=== PATIENT | male | born 1970 | race Caucasian/White ===

== ENCOUNTER → 2017-10-19 | Outpatient (CLI) | payer BC | END | disposition home or self-care (01) | LOC: PCVCIMAG 11:42 | DX: I10 Essential (primary) hypertension (principal); R10.9 Unspecified abdominal pain; R07.9 Chest pain, unspecified; R06.00 Dyspnea, unspecified; G47.30 Sleep apnea, unspecified; E66.9 Obesity, unspecified; E11.9 Type 2 diabetes mellitus without complications; Z82.49 Family history of ischemic heart disease and other diseases of the circulatory system | CPT/HCPCS: 76700; 93325; 93351 ==

== ENCOUNTER → 2018-07-13 | Outpatient (CLI) | payer BC ==
[2015-07-31 16:30] VITALS: BP 150/72
--- NOTE | 2018-07-13 12:33 | PCVCIMAG ---
APPROVED REPORT Laterality: Bilateral Indications Stenosis Doppler Spectral Velocity Analysis PSV / EDVPSV / EDV ECA (R) 83 / 8 cm/sECA (L) 82 / 9 cm/s dICA (R) 65 / 19 cm/sdICA (L) 69 / 26 cm/s Zelda (R) 57 / 18 cm/smICA (L) 59 / 19 cm/s pICA (R) 73 / 21 cm/spICA (L) 72 / 16 cm/s Bulb (R) 61 / 17 cm/sBulb (L) 73 / 14 cm/s dCCA (R) 82 / 17 cm/sdCCA (L) 87 / 14 cm/s mCCA (R) 94 / 21 cm/smCCA (L) 112 / 18 cm/s Vert (R) 47 / 10 cm/sVert (L) 47 / 10 cm/s ICA/CCA 0.89ICA/CCA 0.83 Findings The right carotid bulb has mild calcified plaque. The right proximal internal carotid artery shows no significant stenosis. The right common carotid artery shows no significant stenosis. The right external carotid artery shows no significant stenosis. The left carotid bulb has mild plaque. The left proximal internal carotid artery shows no significant stenosis. The left common carotid artery shows no significant stenosis. The left external carotid artery shows no significant stenosis. Conclusion 1. Mild bilateral plaquing without significant stenosis. 2. Antegrade vertebral flow.
--- NOTE | 2018-07-13 16:36 | PCVCIMAG ---
APPROVED REPORT Study performed: 07/13/2018 10:32:19 Exam: Stress Echocardiogram Indication: Hyperlipidemia, Chest pain Patient Location: Echo lab Stress Nurse: Elisabeth Bonilla RN Room #: 2 Status: routine Ht: 5 ft 5 in HR: 64 bpm BP: 1265/70 mmHg Rhythm: NSR Medical History Medical History: HTN, Family Hx CAD, Diabetes Procedure The patient underwent an Exercise Stress Test using the Fransico Protocol. Blood pressure, heart rate, and EKG were monitored. An Echocardiogram was performed by medical laboratory technicians in four stages in quad fashion. At peak stress, four selected images were obtained and placed side by side with resting images for comparison. Stress Test Details Stress Test: Exercise stress testing was performed using a Fransico protocol. HR Resting HR: 64 bpmMax Heart Rate (APMHR): 172 bpm Max HR Achieved: 139 bpmTarget HR (85% APMHR): 146 bpm % of APMHR: 80 Recovery HR: 70 bpm HR response to stress: Normal HR response to stress BP Resting BP: 126/70 mmHg Max BP: 184/82 mmHg Recovery BP: 180/82 mmHg BP response to stress: Normal blood pressure response to stress. ECG Resting ECG: Sinus Rhythm Stress ECG: Sinus Rhythm Recovery ECG: Sinus Rhythm Clinical Reason for Termination: Maximal effort Exercise duration: 8 min 00 sec Highest Stage Achieved: Stage 3: 3.4 mph at 14% grade. Exercise capacity: 10.40 METs Overall Exercise Capacity for Age: Average Stress ECG Conclusion ECG: Non-ischemic Clinical: Non-ischemic Pre-Stress Echo The resting Echocardiogram showed normal left ventricular contractility with an estimated Ejection Fraction of about >55%. Normal wall motion in all segments on baseline images. Post-Stress Echo The stress Echocardiogram showed normal left ventricular contractility with an estimated Ejection Fraction of about 60-65%. Normal augmentation of wall motion in all segments on post stress images. Clinical No clinical or ECG evidence for ischemia. Conclusion Clinical Response: Non-ischemic Exercise Capacity: Average Stress ECG Response: Non-ischemic Stress Echo Images: Non-ischemic The left ventricle is normal in size and wall thickness in both the rest and stress images. Other Information Study Quality: Adequate <Conclusion> The left ventricle is normal in size and wall thickness in both the rest and stress images.
--- NOTE | 2018-07-13 22:29 | PCVCIMAG ---
EXAM: ULTRASOUND OF THE THYROID INDICATION: Thyroid nodules. FINDINGS: The right thyroid lobe measures 4.8 x 2.8 x 2.7 cm. The left thyroid lobe measures 4.5 x 2.2 x 1.9 cm. 0.7 x 1.3 x 1.8 cm solid nodule mid right thyroid lobe. 0.4 x 0.7 x 0.8 cm cystic nodule mid right thyroid lobe. 0.3 x 0.7 x 0.7 cm cystic area in the isthmus. No nodules in the left thyroid lobe. IMPRESSION: 1.8 cm indeterminate solid nodule mid right thyroid lobe. Further evaluation by ENT could be done if needed clinically. No prior studies available for comparison. LOC:[id number]
== END | disposition home or self-care (01) ==
LOC: PCVCIMAG 10:45
PROVIDERS: ATTEND Internal Medicine Cardiovascular Disease
DX: I65.23 Occlusion and stenosis of bilateral carotid arteries (principal); E78.5 Hyperlipidemia, unspecified; R07.9 Chest pain, unspecified; E04.1 Nontoxic single thyroid nodule
CPT/HCPCS: 76536; 93325; 93351; 93880